=== PATIENT | female | born 1985 | race Caucasian/White ===

== ENCOUNTER 2019-03-31 12:15 | Inpatient (IN) | payer OTHER ==
[~2019-03-31] VITALS: Ht 162.6 cm; Wt 81.6 kg
== END 2019-04-02 10:23 | disposition home or self-care (01) | DRG 833 ==
LOC: ER 12:15 → SURG 20:45
PROVIDERS: ADMIT Obstetrics & Gynecology
DX: O00.102 Left tubal pregnancy without intrauterine pregnancy (principal)

== ENCOUNTER → 2019-03-31 | Emergency (ER) | payer OTHER ==
[~2019-03-31] VITALS: Ht 162.6 cm; Wt 74.8 kg
[~2019-03-31] MED LIST: LEVSIN/SL0.125 MG SL
== END | disposition left against medical advice (07) ==
LOC: ER 06:49
DX: Z53.20 Procedure and treatment not carried out because of patient's decision for unspecified reasons (principal)

== ENCOUNTER 2019-04-23 00:47 | Inpatient (IN) | payer OTHER ==
[~2019-04-23] VITALS: Wt 77.1 kg
[2019-04-27] MEDS ORDERED: NAPROXEN500 MG PO (13:32)
[2019-04-27] MEDS ORDERED: IRON1TAB4 PO (13:32)
== END 2019-04-27 14:51 | disposition home or self-care (01) | DRG 817 ==
LOC: ER 00:47 → OB/GYN 04:24 → O/R 04:24 → SEC-K 04:24 → O/R 05:22 → OB/GYN 08:10
PROVIDERS: ADMIT Obstetrics & Gynecology
PROC: 10T20ZZ Resection of Products of Conception, Ectopic, Open Approach (ICD-10-PCS; 2019-04-23)
PROC: 10D27ZZ Extraction of Products of Conception, Ectopic, Via Natural or Artificial Opening (ICD-10-PCS; 2019-04-23)
PROC: BU4CZZZ Ultrasonography of Uterus and Ovaries (ICD-10-PCS; 2019-04-23)
PROC: 0UB60ZZ Excision of Left Fallopian Tube, Open Approach (ICD-10-PCS; principal; 2019-04-23 07:00)
PROC: 30233N1 Transfusion of Nonautologous Red Blood Cells into Peripheral Vein, Percutaneous Approach (ICD-10-PCS; 2019-04-26)
DX: O00.102 Left tubal pregnancy without intrauterine pregnancy (principal); K66.1 Hemoperitoneum; O08.89 Other complications following an ectopic and molar pregnancy; D62 Acute posthemorrhagic anemia

== ENCOUNTER 2020-09-15 07:18 | Inpatient (IN) | payer OTHER ==
[~2020-09-15] VITALS: Ht 162.6 cm; Wt 81.6 kg
[~2020-09-15 07:18] MED LIST changes: +IRON1TAB4 PO; +NAPROXEN500 MG PO
[2020-09-18] MEDS ORDERED: NAPR500T14 PO (08:59)
[2020-09-18] MEDS ORDERED: tylenol #3 PO (08:59)
== END 2020-09-18 10:53 | disposition home or self-care (01) | DRG 818 ==
LOC: ER 07:18 → CIR.AMB 08:53 → O/R 15:19 → OB/GYN 15:19
PROVIDERS: ADMIT Obstetrics & Gynecology; ATTEND Obstetrics & Gynecology
PROC: 10T20ZZ Resection of Products of Conception, Ectopic, Open Approach (ICD-10-PCS; 2020-09-15)
PROC: 0WJJ0ZZ Inspection of Pelvic Cavity, Open Approach (ICD-10-PCS; 2020-09-15)
PROC: 0UJ84ZZ Inspection of Fallopian Tube, Percutaneous Endoscopic Approach (ICD-10-PCS; principal; 2020-09-15 12:00)
DX: O00.80 Other ectopic pregnancy without intrauterine pregnancy (principal); O08.89 Other complications following an ectopic and molar pregnancy; O09.10 Supervision of pregnancy with history of ectopic pregnancy, unspecified trimester; Z3A.00 Weeks of gestation of pregnancy not specified; Z20.822 Contact with and (suspected) exposure to COVID-19